=== PATIENT | female | born 1950 | race Caucasian/White ===

== ENCOUNTER 2018-04-19 14:45 | Outpatient (CLI) | payer OTHER | END 2018-04-19 14:46 | disposition home or self-care (01) | LOC: SC 14:45 | PROVIDERS: ATTEND Internal Medicine Pulmonary Disease | DX: R06.81 Apnea, not elsewhere classified (principal); G47.10 Hypersomnia, unspecified; G47.8 Other sleep disorders; R06.83 Snoring; R41.89 Other symptoms and signs involving cognitive functions and awareness | CPT/HCPCS: 99203; 99212 ==

== ENCOUNTER 2018-05-18 20:32 | Outpatient (CLI) | payer OTHER | END 2018-05-18 20:33 | disposition home or self-care (01) | LOC: SC 20:32 | PROVIDERS: ATTEND Internal Medicine Pulmonary Disease | DX: G47.10 Hypersomnia, unspecified (principal); R06.81 Apnea, not elsewhere classified | CPT/HCPCS: 95810 ==

== ENCOUNTER 2018-06-04 13:42 | Outpatient (CLI) | payer OTHER | END 2018-06-04 13:43 | disposition home or self-care (01) | LOC: SC 13:42 | PROVIDERS: ATTEND Nurse Practitioner Family | DX: R06.83 Snoring (principal); G47.61 Periodic limb movement disorder; G47.10 Hypersomnia, unspecified | CPT/HCPCS: 99212; 99214 ==

== ENCOUNTER 2020-11-25 07:44 | Outpatient (CLI) | payer OTHER ==
[~2020-11-25 07:44] MED LIST: GADOBUTROL 15 MMOL/15 ML VIAL ONE
--- NOTE | 2020-11-25 10:20 | MRI Report ---
PROCEDURE: Brain W/WO INDICATIONS: Sudden onset diplopia CONTRAST: IV CONTRAST: Gadavist ml: 9.7 TECHNIQUE: Noncontrast axial T1 spin echo, axial T2 fast spin echo, sagittal and axial FLAIR, coronal T2 fast sp in echo, axial gradient echo, axial diffusion and ADC through the brain. After the administration of contrast, axial and coronal T1 spin echo with fat saturation through the brain. COMPARISON: None. FINDINGS: Image quality: Excellent. CSF spaces: Basal cisterns are patent. No extra-axial fluid collections. Ventricles are normal in size and shape. Brain: No midline shift. No intracranial bleeds or masses. No abnormal intracranial enhancement. There is cerebral volume loss for age. There is periventricular white matter chronic small vessel is chemic change. The brainstem appears normal. Diffusion-weighted images demonstrate no acute ischemi c insults. No chronic ischemic insults. Normal intravascular flow voids are present. Skull and face: Calvarial marrow is normal in signal. There is axial elongation of the bilateral petar bes (axial myopia), with probable developing subtle staphylomas along the posterior and medial aspect s of the globes bilaterally. Sinuses: Sinuses and mastoids appear clear. 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 No other abnormality to explain diplopia. Moderate chronic microvascular ischemic changes. Reviewed by: Michael Powers MD on 11/25/2020 10:19 AM PDT Approved by: Michael Powers MD on 11/25/2020 10:19 AM PDT Station ID: [id number]
[2020-11-25] MEDS ORDERED: GADOBUTROL 15 MMOL/15 ML VIAL IVP ONE (16:45)
== END 2020-11-25 07:45 | disposition home or self-care (01) ==
LOC: DI 07:44
PROVIDERS: ATTEND Family Medicine
DX: H53.2 Diplopia (principal); H52.13 Myopia, bilateral; I67.89 Other cerebrovascular disease
CPT/HCPCS: 70553; A9585

== ENCOUNTER 2023-04-03 07:56 | Outpatient (CLI) | payer OTHER ==
--- NOTE | 2023-04-03 09:08 | XRAY Report ---
PROCEDURE: Shoulder 2+V LT INDICATIONS: L SHOULDER PAIN TECHNIQUE: 3 views of the shoulder were acquired. COMPARISON: None. FINDINGS: Bones: No fractures or dislocations. Moderate acromioclavicular joint osteoarthritic changes are se en. Mild to moderate glenohumeral joint osteoarthritic changes also noted. No suspicious bony lesions . Visualized ribs appear intact. Soft tissues: No suspicious soft tissue calcifications. The visualized lungs are within normal limi ts. IMPRESSION: Moderate acromioclavicular joint osteophytosis and mild to moderate glenohumeral joint osteoarthritis . No acute shoulder fracture or dislocation. Reviewed by: Semaj Sanchez MD on 04/03/2023 9:06 AM PST Approved by: Semaj Sanchez MD on 04/03/2023 9:06 AM PST Station ID: [id number]
== END 2023-04-03 07:57 | disposition home or self-care (01) ==
LOC: DI.N 07:56
PROVIDERS: ATTEND Physician Assistant
DX: M19.012 Primary osteoarthritis, left shoulder (principal)